=== PATIENT | male | born 1960 | race Caucasian/White ===

== ENCOUNTER 2022-02-02 13:34 | Inpatient (IN) ==
[2022-02-02 15:45] LABS: Appearance Urine Clear (Clear); Bilirubin Urine Negative (Negative); Blood Urine Trace (Negative); Color Urine Yellow; Glucose Urine UA 3+ (Negative); Ketones Urine 1+ (Negative); Leukocyte Esterase Urine Negative (Negative); Nitrite Urine Negative (Negative); Protein Urine Negative (Negative); Specific Gravity Urine 1.029 (1.000-1.030); Urobilinogen Urine Negative (Negative)
--- NOTE | 2022-02-02 16:08 | XRay Report ---
XR chest 1V portable CLINICAL HISTORY: weakness COMPARISON STUDY: Chest CT December 13, 2021. FINDINGS: Lung volumes are normal. Linear bilateral densities favor atelectasis. There is no pneumoth orax or pleural effusion. Cardiac size is normal. Mediastinal contours are normal. There is no eviden ce for pulmonary edema. IMPRESSION: No acute cardiopulmonary findings. ACT 112: Negative or not required by law. Electronically signed by: Todd Brody M.D. 02/02/2022 4:07 PM
[2022-02-02 16:15] LABS: Cast Urine Automated 0 /lpf (0-5); Epithelial Cell Urine Auto 0-5 /lpf (0-5); RBC Urine Automated 0-4 /hpf (0-4); WBC Urine Automated 0 /hpf (0-5)
[2022-02-02 16:16] LABS: Bacteria Urine Automated Negative (Negative)
[2022-02-02 16:19] LABS: Hematocrit (blood only) 42.1 % (42-52); Hemoglobin 13.3 g/dL (14.0-18.0); Mean Corpuscular Hemoglobin 27.9 pg (25-34); Mean Corpuscular Hgb Conc 31.6 g/dL (32-36); Mean Corpuscular Volume 88.4 fL (80-100); Platelet Count 196 K/uL (130-400); RDW Coefficient of Variation 17.5 % (11.5-14.5); RDW Standard Deviation 56.9 fL (36.4-46.3); Red Blood Count 4.76 M/uL (4.7-6.1)
[2022-02-02 16:26] LABS: Troponin I < 0.03 ng/ml (0-0.04)
[2022-02-02 16:41] LABS: INR 0.9 (0.9-1.1); Partial Thromboplastin Ratio 0.8; Partial Thromboplastin Time 22.9 Seconds (21.0-31.0); Prothrombin Time 9.9 Seconds (9.0-12.0)
--- NOTE | 2022-02-02 16:48 | Emergency Department Note ---
Impression & Plan Acute hyperglycemia, Hyperosmolar hyperglycemic state (HHS), COVID-19 virus infection ED Provider Note NAME: STORMY YATES AGE: 61 SEX: M : 1960 ARRIVES VIA: Walk-In INFORMANT: Patient, ED PROVIDER(S): Corey Xavier DO CHIEF COMPLAINT: Weakness HPI: The patient is a 61-year-old male who presented to the emergency department for an evaluation of generalized weakness. The patient has noticed generalized weakness and weight loss over the course of the last few months. He was referred to the emergency department by his primary arthritis doctor as well as his primary care physician for further evaluation. The patient denies having any nausea or vomiting. He has noticed some abdominal discomfort. He has had been receiving rituximab for chronic vasculitis. The patient states is been compliant with his usual outpatient medications. He denies having any black or bloody bowels. He denies having any trauma. He thinks he is lost approximately 40 pounds over the course the last few months. He also has noticed significant polyuria. ROS: See above HPI for pertinent positives & negatives. A total of 10 systems reviewed and were otherwise negative. PAST MEDICAL HISTORY: See Below PAST SURGICAL HISTORY: See Below FAMILY HISTORY: See Below SOCIAL HISTORY: See Below HOME MEDICATIONS: See Below ALLERGIES: See Below VITALS: See Below PHYSICAL EXAMINATION: GENERAL: Patient is awake alert in no acute distress patient is resting comfortably and showing no signs of anxiety EYES: The conjunctivae are clear. The pupils are round and reactive. EARS, NOSE, MOUTH AND THROAT: The nose is without any evidence of any deformity. Mucous membranes are moist. Tongue is midline. NECK: The neck is nontender and supple. RESPIRATORY: Normal respiratory effort is noted there is no evidence of wheezing rhonchi or rales CARDIOVASCULAR: Regular rate and rhythm noted there no murmurs rubs or gallops normal S1 normal S2. GASTROINTESTINAL: Abdomen was mildly distended. There is diffuse tenderness to palpation but no guarding rigidity. MUSCULOSKELETAL/EXTREMITIES: There is no evidence of gross deformity full range of motion is noted in the hips and shoulders. SKIN: There is no obvious evidence of any rash. There are no petechiae, pallor or cyanosis noted. NEUROLOGIC: Patient is awake alert and oriented x3 strength is symmetric patellar reflexes are 2+ bilaterally MEDICAL DECISION MAKING: Patient is a 61-year-old male who presented to the emergency department for an evaluation of weight loss and generalized weakness. Symptoms have been ongoing for the last few months. I discussed the patient's laboratory and radiographic studies with him. He was found to have significant hyperglycemia in the emergency department. He does take steroids but he has had these medications for quite some time. The patient was treated with IV fluids and IV insulin in the emergency department. He was reevaluated multiple times. I discussed his c ase with the on-call [facility]. They have agreed to evaluate the patient in the emergency department for further management and disposition. Triage Nursing notes reviewed. Prior medical records reviewed Vital Signs: reviewed and remarkable for hypertension. Differential diagnosis: Infection, dehydration, metabolic abnormality, hypo/hyperglycemia, electrolyte disturbance, anemia, hypoxia, cardiac sources, intracerebral event, toxicologic, neurologic, as well as other pathologies. ER treatment provided: See below Diagnostics interpreted by me: ECG: EKG was obtained in the emergency department. My interpretation is normal sinus rhythm at 81 bpm. There is no ectopy. There is no acute ST segment abnormalities noted. Inferior Q waves were noted. No previous EKG was noted. Cardiac Monitoring: An order was placed for continuous cardiac monitoring. The monitor shows a rate of 85 bpm with sinus rhythm. Laboratory studies: As stated above and show below. Imaging studies: See below Consultation(s): Discussed this case with Dr. Turner who is on-call for the [facility]. ED COURSE: Procedures: none Critical Care: I have personally spent greater than 40 minutes of critical care time in the direct management of this patient. This includes bedside care, interpretation of diagnostic studies, and testing, discussion with consultants, patient, and family members, and other required patient management activities. This 40 minutes is in excess of all separately billable procedures. Past Med/Surg History Medical History Acid reflux Chronic nonallergic rhinitis Chronic sinusitis Dyslipidemia Granulomatosis with polyangiitis Necrotizing vasculopathy Prediabetes Raynaud disease Surgical History H/O inguinal hernia repair 1968 and 1976 H/O umbilical hernia repair as History of surgery (1988) Mass removed from Neck in 1988. S/P wisdom tooth extraction Family History Mother Pancreatic cancer Brother Hypertension Sister Osteoarthritis Tourette syndrome Father , age 47 No problems noted. Grandmother (Paternal) Osteoarthritis Denies family history of Ovarian cancer Prostate cancer Hearing loss No family history of adverse response to anesthesia No family history of bleeding disorder Heart disease Allergies Myocardial infarction Breast cancer Colorectal cancer Stroke Asthma Social History Smoking Status: Never smoker Tobacco Type: Cigarettes and Smokeless Tobacco (Dip or Chew) Age Started Using Tobacco: 18; Age Quit Using Tobacco: 25; packs per day: 1; Second Hand Exposure: Yes; Hx Alcohol Use: No Hx Substance Use: No Preferred Language: German Communication Ability: Effective Visual Impairment: No Limitations Hearing Ability: Normal marital status: Current Living Situation: Spouse current occupational status: employed 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 [employer] How many Children do You have: 3 Feels Safe at Home: Yes Childhood Exposure to Second-Hand Smoke: Yes caffeine: Yes during the past year weight has: remained stable Dental Care, Regularly: No Physical Activity Frequency: 1-2 Times per Week Seatbelt Use: always Sunscreen Use: No Assistive Devices: Glasses Allergies Allergies Allergy/AdvReac Type Severity Reaction Status Date / Time No Known Drug Allergies Allergy NKDA Verified 02/02/22 18:10 Home Meds Home Medications Medication Instructions Recorded Confirmed amlodipine 5 mg tablet 10 mg PO DAILY tab 01/11/22 02/02/22 avacopan 10 mg capsule (Tavneos) 30 mg PO .STOP 01/11/22 02/02/22 prednisone 20 mg tablet 20 mg PO DAILY tab 01/11/22 02/02/22 rituximab [Rituxan] See Rx Instructions IV .COMPLEX 01/11/22 02/02/22 Results & Data (ED) Vital Signs Vital Signs - 24 hr 02/02/22 13:53 02/02/22 14:25 02/02/22 15:10 Temperature 36.5 C Temperature Source Temporal Artery Scan Pulse Rate 98 H Pulse Rate [Finger] 84 78 Pulse Rhythm Regular Pulse Rhythm [Finger] Regular Regular Pulse Strength Normal Pulse Strength [Finger] Normal Normal Respiratory Rate 18 18 18 Respiratory Effort / Characteristics Non-Labored Spontaneous Non-Labored Spontaneous Non-Labored Spontaneous Respiratory Depth Normal Normal Normal Respiratory Pattern Regular Blood Pressure 127/81 Blood Pressure [Left Arm] 130/77 122/81 Blood Pressure Mean 96 Blood Pressure Mean [Left Arm] 94 94 Blood Pressure Position Sitting Blood Pressure Position [Left Arm] Lying Lying Pulse Oximetry 100 94 95 Oxygen Delivery Method Room Air Room Air Room Air Sepsis Recent Fever Within 48 Hours No Sepsis New/Unexplained Change in Mental Status No Sepsis Action Taken by Nursing No Action Required 02/02/22 17:00 02/02/22 18:00 02/02/22 19:00 Temperature Temperature Source Pulse Rate Pulse Rate [Finger] 79 85 Pulse Rhythm Pulse Rhythm [Finger] Regular Regular Pulse Strength Pulse Strength [Finger] Normal Normal Respiratory Rate 18 18 Respiratory Effort / Characteristics Non-Labored Non-Labored Respiratory Depth Normal Normal Respiratory Pattern Regular Regular Blood Pressure Blood Pressure [Left Arm] 141/87 H 143/87 H Blood Pressure Mean Blood Pressure Mean [Left Arm] 105 105 Blood Pressure Position Blood Pressure Position [Left Arm] Lying Lying Pulse Oximetry 97 97 Oxygen Delivery Method Room Air Room Air Room Air Sepsis Recent Fever Within 48 Hours Sepsis New/Unexplained Change in Mental Status Sepsis Action Taken by Long Term Medications Current Medication List: was personally reviewed by me Laboratory Data Attestation: I reviewed the patient's lab results. Result diagrams: 02/02/22 14:20 02/02/22 14:20 Lab Results 02/02/22 02/02/22 02/02/22 Range/Units 14:20 14:20 14:20 WBC 7.70 (4.8-10.8) K/uL RBC 4.76 (4.7-6.1) M/uL Hgb 13.3 L (14.0-18.0) g/dL Hct 42.1 (42-52) % MCV 88.4 (80-100) fL MCH 27.9 (25-34) pg MCHC 31.6 L (32-36) g/dL RDW Std Deviation 56.9 H (36.4-46.3) fL RDW Coeff of Lico 17.5 H (11.5-14.5) % Plt Count 196 (130-400) K/uL MPV 10.0 (7.4-10.4) fL Neutrophils % (Manual) 77.4 % Lymphocytes % (Manual) 6.1 % Monocytes % (Manual) 5.2 % Metamyelocytes % (Man) 5.2 % Myelocytes % (Man) 6.1 % Neutrophils # (Manual) 5.96 (1.4-6.5) K/uL Total Absolute Neuts 5.96 (1.4-6.5) K/uL Lymphocytes # (Manual) 0.47 L (1.2-3.4) K/uL Total Abs Lymphocytes 0.47 L (1.2-3.4) K/uL Monocytes # (Manual) 0.40 (0.11-0.59) K/uL Metamyelocytes # (Man) 0.40 H (0-0) K/uL Myelocytes # (Manual) 0.47 H (0-0) K/uL Polychromasia 1+ Microcytosis Present PT 9.9 (9.0-12.0) Seconds INR 0.9 (0.9-1.1) APTT 22.9 (21.0-31.0) Seconds PTT Ratio 0.8 VBG pH (7.36-7.41) VBG pCO2 (38-50) mmHg VBG pO2 mmHg VBG HCO3 mmol/L VBG O2 Saturation % VBG Base Excess mEq/L Barometric Pressure mm/Hg Sodium 121 L (136-145) mmol/L Potassium 5.0 (3.5-5.1) mmol/L Chloride 86 L (98-107) mmol/L Carbon Dioxide 21 (21-32) mmol/L Anion Gap 14 H (3-11) BUN 34 H (6-23) mg/dl Creatinine 1.39 (0.6-1.4) mg/dl Est Cr Clr Drug Dosing 58.9 ml/min Est GFR ( Amer) 62.9 ml/min Est GFR (Non-Af Amer) 54.3 ml/min BUN/Creatinine Ratio 24.5 H (10-20) Glucose 1004 H* (70-99(Fasting)) mg/dl POC Glucose (70-99) mg/dl Calcium 8.4 L (8.5-10.1) mg/dl Magnesium 2.0 (1.7-2.4) mg/dl Total Bilirubin 0.7 (0.2-1.0) mg/dl AST 22 (13-39) U/L ALT 40 (7-52) U/L Alkaline Phosphatase 90 (34-104) U/L Total Creatine Kinase 42 (30-223) U/L Troponin I < 0.03 (0-0.04) ng/ml Total Protein 5.3 L (6.0-8.3) gm/dl Albumin 3.1 L (3.4-5.0) gm/dl Globulin 2.2 L (2.5-4.0) gm/dl Albumin/Globulin Ratio 1.4 (0.9-2) Procalcitonin (0-0.5) ng/ml TSH (0.300-4.500) uIu/ml Urine Color Urine Appearance (Clear) Urine pH (4.5-7.5) Ur Specific [place] (1.000-1.030) Urine Protein (Negative) Urine Glucose (UA) (Negative) Urine Ketones (Negative) Urine Blood (Negative) Urine Nitrite (Negative) Urine Bilirubin (Negative) Urine Urobilinogen (Negative) Ur Leukocyte Esterase (Negative) Urine WBC (Auto) (0-5) /hpf Urine RBC (Auto) (0-4) /hpf U Hyaline Cast (Auto) (0-5) /lpf U Epithel Cells (Auto) (0-5) /lpf Urine Bacteria (Auto) (Negative) SARS-CoV-2, RNA, NAAT (NEGATIVE) 02/02/22 02/02/22 02/02/22 Range/Units 14:20 15:07 17:20 WBC (4.8-10.8) K/uL RBC (4.7-6.1) M/uL Hgb (14.0-18.0) g/dL Hct (42-52) % MCV (80-100) fL MCH (25-34) pg MCHC (32-36) g/dL RDW Std Deviation (36.4-46.3) fL RDW Coeff of Lico (11.5-14.5) % Plt Count (130-400) K/uL MPV (7.4-10.4) fL Neutrophils % (Manual) % Lymphocytes % (Manual) % Monocytes % (Manual) % Metamyelocytes % (Man) % Myelocytes % (Man) % Neutrophils # (Manual) (1.4-6.5) K/uL Total Absolute Neuts (1.4-6.5) K/uL Lymphocytes # (Manual) (1.2-3.4) K/uL Total Abs Lymphocytes (1.2-3.4) K/uL Monocytes # (Manual) (0.11-0.59) K/uL Metamyelocytes # (Man) (0-0) K/uL Myelocytes # (Manual) (0-0) K/uL Polychromasia Microcytosis PT (9.0-12.0) Seconds INR (0.9-1.1) APTT (21.0-31.0) Seconds PTT Ratio VBG pH (7.36-7.41) VBG pCO2 (38-50) mmHg VBG pO2 mmHg VBG HCO3 mmol/L VBG O2 Saturation % VBG Base Excess mEq/L Barometric Pressure mm/Hg Sodium (136-145) mmol/L Potassium (3.5-5.1) mmol/L Chloride (98-107) mmol/L Carbon Dioxide (21-32) mmol/L Anion Gap (3-11) BUN (6-23) mg/dl Creatinine (0.6-1.4) mg/dl Est Cr Clr Drug Dosing ml/min Est GFR ( Amer) ml/min Est GFR (Non-Af Amer) ml/min BUN/Creatinine Ratio (10-20) Glucose (70-99(Fasting)) mg/dl POC Glucose > 600 H* (70-99) mg/dl Calcium (8.5-10.1) mg/dl Magnesium (1.7-2.4) mg/dl Total Bilirubin (0.2-1.0) mg/dl AST (13-39) U/L ALT (7-52) U/L Alkaline Phosphatase (34-104) U/L Total Creatine Kinase (30-223) U/L Troponin I (0-0.04) ng/ml Total Protein (6.0-8.3) gm/dl Albumin (3.4-5.0) gm/dl Globulin (2.5-4.0) gm/dl Albumin/Globulin Ratio (0.9-2) Procalcitonin (0-0.5) ng/ml TSH 0.876 (0.300-4.500) uIu/ml Urine Color Yellow Urine Appearance Clear (Clear) Urine pH 5.0 (4.5-7.5) Ur Specific [place] 1.029 (1.000-1.030) Urine Protein Negative (Negative) Urine Glucose (UA) 3+ H (Negative) Urine Ketones 1+ H (Negative) Urine Blood Trace H (Negative) Urine Nitrite Negative (Negative) Urine Bilirubin Negative (Negative) Urine Urobilinogen Negative (Negative) Ur Leukocyte Esterase Negative (Negative) Urine WBC (Auto) 0 (0-5) /hpf Urine RBC (Auto) 0-4 (0-4) /hpf U Hyaline Cast (Auto) 0 (0-5) /lpf U Epithel Cells (Auto) 0-5 (0-5) /lpf Urine Bacteria (Auto) Negative (Negative) SARS-CoV-2, RNA, NAAT (NEGATIVE) 02/02/22 02/02/22 02/02/22 Range/Units 18:05 18:26 18:35 WBC (4.8-10.8) K/uL RBC (4.7-6.1) M/uL Hgb (14.0-18.0) g/dL Hct (42-52) % MCV (80-100) fL MCH (25-34) pg MCHC (32-36) g/dL RDW Std Deviation (36.4-46.3) fL RDW Coeff of Lico (11.5-14.5) % Plt Count (130-400) K/uL MPV (7.4-10.4) fL Neutrophils % (Manual) % Lymphocytes % (Manual) % Monocytes % (Manual) % Metamyelocytes % (Man) % Myelocytes % (Man) % Neutrophils # (Manual) (1.4-6.5) K/uL Total Absolute Neuts (1.4-6.5) K/uL Lymphocytes # (Manual) (1.2-3.4) K/uL Total Abs Lymphocytes (1.2-3.4) K/uL Monocytes # (Manual) (0.11-0.59) K/uL Metamyelocytes # (Man) (0-0) K/uL Myelocytes # (Manual) (0-0) K/uL Polychromasia Microcytosis PT (9.0-12.0) Seconds INR (0.9-1.1) APTT (21.0-31.0) Seconds PTT Ratio VBG pH 7.42 H (7.36-7.41) VBG pCO2 36 L (38-50) mmHg VBG pO2 33 mmHg VBG HCO3 23 mmol/L VBG O2 Saturation 63.9 % VBG Base Excess -0.8 mEq/L Barometric Pressure 729.1 mm/Hg Sodium (136-145) mmol/L Potassium (3.5-5.1) mmol/L Chloride (98-107) mmol/L Carbon Dioxide (21-32) mmol/L Anion Gap (3-11) BUN (6-23) mg/dl Creatinine (0.6-1.4) mg/dl Est Cr Clr Drug Dosing ml/min Est GFR ( Amer) ml/min Est GFR (Non-Af Amer) ml/min BUN/Creatinine Ratio (10-20) Glucose (70-99(Fasting)) mg/dl POC Glucose (70-99) mg/dl Calcium (8.5-10.1) mg/dl Magnesium (1.7-2.4) mg/dl Total Bilirubin (0.2-1.0) mg/dl AST (13-39) U/L ALT (7-52) U/L Alkaline Phosphatase (34-104) U/L Total Creatine Kinase (30-223) U/L Troponin I (0-0.04) ng/ml Total Protein (6.0-8.3) gm/dl Albumin (3.4-5.0) gm/dl Globulin (2.5-4.0) gm/dl Albumin/Globulin Ratio (0.9-2) Procalcitonin 0.14 (0-0.5) ng/ml TSH (0.300-4.500) uIu/ml Urine Color Urine Appearance (Clear) Urine pH (4.5-7.5) Ur Specific [place] (1.000-1.030) Urine Protein (Negative) Urine Glucose (UA) (Negative) Urine Ketones (Negative) Urine Blood (Negative) Urine Nitrite (Negative) Urine Bilirubin (Negative) Urine Urobilinogen (Negative) Ur Leukocyte Esterase (Negative) Urine WBC (Auto) (0-5) /hpf Urine RBC (Auto) (0-4) /hpf U Hyaline Cast (Auto) (0-5) /lpf U Epithel Cells (Auto) (0-5) /lpf Urine Bacteria (Auto) (Negative) SARS-CoV-2, RNA, NAAT POSITIVE A* (NEGATIVE) 02/02/22 02/02/22 Range/Units 19:09 20:12 WBC (4.8-10.8) K/uL RBC (4.7-6.1) M/uL Hgb (14.0-18.0) g/dL Hct (42-52) % MCV (80-100) fL MCH (25-34) pg MCHC (32-36) g/dL RDW Std Deviation (36.4-46.3) fL RDW Coeff of Lico (11.5-14.5) % Plt Count (130-400) K/uL MPV (7.4-10.4) fL Neutrophils % (Manual) % Lymphocytes % (Manual) % Monocytes % (Manual) % Metamyelocytes % (Man) % Myelocytes % (Man) % Neutrophils # (Manual) (1.4-6.5) K/uL Total Absolute Neuts (1.4-6.5) K/uL Lymphocytes # (Manual) (1.2-3.4) K/uL Total Abs Lymphocytes (1.2-3.4) K/uL Monocytes # (Manual) (0.11-0.59) K/uL Metamyelocytes # (Man) (0-0) K/uL Myelocytes # (Manual) (0-0) K/uL Polychromasia Microcytosis PT (9.0-12.0) Seconds INR (0.9-1.1) APTT (21.0-31.0) Seconds PTT Ratio VBG pH (7.36-7.41) VBG pCO2 (38-50) mmHg VBG pO2 mmHg VBG HCO3 mmol/L VBG O2 Saturation % VBG Base Excess mEq/L Barometric Pressure mm/Hg Sodium (136-145) mmol/L Potassium (3.5-5.1) mmol/L Chloride (98-107) mmol/L Carbon Dioxide (21-32) mmol/L Anion Gap (3-11) BUN (6-23) mg/dl Creatinine (0.6-1.4) mg/dl Est Cr Clr Drug Dosing ml/min Est GFR ( Amer) ml/min Est GFR (Non-Af Amer) ml/min BUN/Creatinine Ratio (10-20) Glucose (70-99(Fasting)) mg/dl POC Glucose 542 H* 468 H* (70-99) mg/dl Calcium (8.5-10.1) mg/dl Magnesium (1.7-2.4) mg/dl Total Bilirubin (0.2-1.0) mg/dl AST (13-39) U/L ALT (7-52) U/L Alkaline Phosphatase (34-104) U/L Total Creatine Kinase (30-223) U/L Troponin I (0-0.04) ng/ml Total Protein (6.0-8.3) gm/dl Albumin (3.4-5.0) gm/dl Globulin (2.5-4.0) gm/dl Albumin/Globulin Ratio (0.9-2) Procalcitonin (0-0.5) ng/ml TSH (0.300-4.500) uIu/ml Urine Color Urine Appearance (Clear) Urine pH (4.5-7.5) Ur Specific [place] (1.000-1.030) Urine Protein (Negative) Urine Glucose (UA) (Negative) Urine Ketones (Negative) Urine Blood (Negative) Urine Nitrite (Negative) Urine Bilirubin (Negative) Urine Urobilinogen (Negative) Ur Leukocyte Esterase (Negative) Urine WBC (Auto) (0-5) /hpf Urine RBC (Auto) (0-4) /hpf U Hyaline Cast (Auto) (0-5) /lpf U Epithel Cells (Auto) (0-5) /lpf Urine Bacteria (Auto) (Negative) SARS-CoV-2, RNA, NAAT (NEGATIVE) Administered Medications Insulin Human Regular 250 (units/ Sodium Chloride) 250 mls @ 4.5 mls/hr IV .Q24H [facility]; Protocol Stop: 03/04/22 17:29 Last Titration: 02/02/22 19:47 Dose: 4.5 units/hr, 4.5 mls/hr Documented by: [id number] Cosigned by: [id number] Titration: 02/02/22 19:15 Dose: 0 units/hr, 0 mls/hr Documented by: [id number] Cosigned by: [id number] Admin: 02/02/22 18:09 Dose: 7.5 units/hr, 7.5 mls/hr Documented by: [id number] Cosigned by: [id number] Discontinued Medications Sodium Chloride (Nss 1000ml) 1,000 mls @ 999 mls/hr IV .Q1H1M ONE Stop: 02/02/22 18:13 Last Infusion: 02/02/22 20:00 Dose: 0 mls/hr Documented by: [id number] Admin: 02/02/22 18:09 Dose: 999 mls/hr Documented by: [id number] Sodium Chloride (Nss 1000ml) 1,000 mls @ 999 mls/hr IV .Q1H1M ONE Stop: 02/02/22 18:17 Last Admin: 02/02/22 19:16 Dose: 999 mls/hr Documented by: [id number] Insulin Human Regular (Novolin-R Bolus From Bag) 7.5 units IV ONE ONE Stop: 02/02/22 17:46 Last Admin: 02/02/22 18:11 Dose: 7.5 units Documented by: [id number] Cosigned by: [id number] Imaging Data Radiologist's Impression: Chest X-Ray 02/02/22 15:54 XR chest 1V portable CLINICAL HISTORY: weakness COMPARISON STUDY: Chest CT December 13, 2021. FINDINGS: Lung volumes are normal. Linear bilateral densities favor atelectasis. There is no pneumothorax or pleural effusion. Cardiac size is normal. Mediastinal contours are normal. There is no evidence for pulmonary edema. IMPRESSION: No acute cardiopulmonary findings. ACT 112: Negative or not required by law. Electronically signed by: Todd Brody M.D. 02/02/2022 4:07 PM Abdomen/Pelvis CT 02/02/22 15:57 CT OF THE ABDOMEN AND PELVIS WITHOUT CONTRAST CLINICAL HISTORY: Abdominal pain and urinary symptoms. COMPARISON STUDY: No previous studies for comparison. TECHNIQUE: Axial images of the abdomen and pelvis were obtained without IV contr ast. Images were reviewed in the axial, sagittal, and coronal planes. Automated exposure control was utilized for the study. A dose lowering technique was utilized adhering to the principles of ALARA. FINDINGS: Mild ground glass opacities are noted within the lower lungs. These are new since chest CT of December 13, 2021. No renal, ureteral or bladder calculi are present. There is no hydronephrosis or hydroureter. Evaluation of the remainder of the abdomen and pelvis is suboptimal on this unenhanced exam. There is hepatic steatosis. The spleen, adrenal glands and pancreas are unremarkable. No biliary or pancreatic ductal dilatation. No peripancreatic or pericholecystic infiltration. Appendix is normal. There is no evidence for a bowel obstruction. Moderate amount stool within the colon and rectum is present. There is no lymphadenopathy or ascites. No acute fracture or suspicious lesion within visualized skeletal structures. Prostate is moderately enlarged. Bladder is mildly distended. IMPRESSION: 1. No urinary calculi or hydronephrosis. 2. Moderately enlarged prostate. Mild bladder distention. 3. Normal appendix. No bowel obstruction. 4. Mild groundglass opacities within the lower lungs. These favor an infectious process. 5. Hepatic steatosis. ACT 112: Negative or not required by law. Electronically signed by: Todd Brody M.D. 02/02/2022 5:[address] 02/02/22 15:57 CT SCAN OF THE BRAIN WITHOUT IV CONTRAST CLINICAL HISTORY: Generalized weakness. COMPARISON STUDY: CT of the paranasal sinuses dated 10/19/2021. TECHNIQUE: Unenhanced axial CT scan of the brain is performed from the vertex to the skull base. A dose lowering technique was utilized adhering to the principles of ALARA. FINDINGS: Brain parenchyma: The brain parenchyma is normal in appearance. There is no hemorrhage, mass effect, or evidence of acute territorial ischemia by CT criteria. Davidson-white matter differentiation is preserved. No extra-axial fluid collection is seen. Ventricles, sulci, cisterns: Normal in configuration. Intracranial vasculature: There is atherosclerotic calcification of the cavernous carotid and vertebral arteries. Calvarium: Unremarkable. Sinuses and mastoids: The visualized paranasal sinuses are clear. The mastoid air cells are well pneumatized. Orbits: The bony orbits are grossly intact. IMPRESSION: There is no hemorrhage, mass effect, or evidence of acute territorial ischemia by CT criteria. ACT 112: Negative or not required by law. Electronically signed by: Freddy Fermin M.D. 02/02/2022 5:02 PM Discharge Plan Visit Data Chief Complaint: Weakness Stated Complaint: WEIGHT LOSS, WEAKNESS, TROUBLE STANDING ED Provider: Corey Xavier Discharge Problem: Acute hyperglycemia, Hyperosmolar hyperglycemic state (HHS), COVID-19 virus infection Patient Disposition: Being Evaluated by Hospitalist Forms Stand Alone Forms: My [facility] Prescriptions Prescriptions: No Action amlodipine 5 mg tablet 10 mg PO DAILY RF: 0 Tavneos 10 mg capsule 30 mg PO .STOP RF: 0 prednisone 20 mg tablet 20 mg PO DAILY RF: 0 rituximab [Rituxan] See Rx Instructions IV .COMPLEX RF: 0 Referrals Referrals: Caitie Lopez DO [Primary Care Provider] -
[2022-02-02 16:52] LABS: Alanine Aminotransferase 40 U/L (7-52); Albumin Globulin Ratio 1.4 (0.9-2); Albumin Level 3.1 gm/dl (3.4-5.0); Alkaline Phosphatase 90 U/L (34-104); Anion Gap 14 (3-11); Aspartate Aminotransferase 22 U/L (13-39); BUN Creatinine Ratio 24.5 (10-20); Bilirubin,Total 0.7 mg/dl (0.2-1.0); Blood Urea Nitrogen 34 mg/dl (6-23); Calcium 8.4 mg/dl (8.5-10.1); Carbon Dioxide 21 mmol/L (21-32); Chloride 86 mmol/L (98-107); Creatine Kinase 42 U/L (30-223); Creatinine Clr Calc Pharmacy 58.9 ml/min; Est GFR (African American) 62.9 ml/min; Est GFR (Non-African American) 54.3 ml/min; Globulin 2.2 gm/dl (2.5-4.0); Glucose 1004 mg/dl (70-99(Fasting)); Sodium 121 mmol/L (136-145); Total Protein 5.3 gm/dl (6.0-8.3)
--- NOTE | 2022-02-02 17:03 | CT Scan Report ---
CT OF THE ABDOMEN AND PELVIS WITHOUT CONTRAST CLINICAL HISTORY: Abdominal pain and urinary symptoms. COMPARISON STUDY: No previous studies for comparison. TECHNIQUE: Axial images of the abdomen and pelvis were obtained without IV contrast. Images were revi ewed in the axial, sagittal, and coronal planes. Automated exposure control was utilized for the yolanda dy. A dose lowering technique was utilized adhering to the principles of ALARA. FINDINGS: Mild ground glass opacities are noted within the lower lungs. These are new since chest CT of December 13, 2021. No renal, ureteral or bladder calculi are present. There is no hydronephrosis or hydroureter. Evaluation of the remainder of the abdomen and pelvis is suboptimal on this unenhanced exam. There is hepatic steatosis. The spleen, adrenal glands and pancreas are unremarkable. No biliar y or pancreatic ductal dilatation. No peripancreatic or pericholecystic infiltration. Appendix is nor mal. There is no evidence for a bowel obstruction. Moderate amount stool within the colon and rectum is present. There is no lymphadenopathy or ascites. No acute fracture or suspicious lesion within vis ualized skeletal structures. Prostate is moderately enlarged. Bladder is mildly distended. IMPRESSION: 1. No urinary calculi or hydronephrosis. 2. Moderately enlarged prostate. Mild bladder distention. 3. Normal appendix. No bowel obstruction. 4. Mild groundglass opacities within the lower lungs. These favor an infectious process. 5. Hepatic steatosis. ACT 112: Negative or not required by law. Electronically signed by: Todd Brody M.D. 02/02/2022 5:01 PM
--- NOTE | 2022-02-02 17:04 | CT Scan Report ---
CT SCAN OF THE BRAIN WITHOUT IV CONTRAST CLINICAL HISTORY: Generalized weakness. COMPARISON STUDY: CT of the paranasal sinuses dated 10/19/2021. TECHNIQUE: Unenhanced axial CT scan of the brain is performed from the vertex to the skull base. A d ose lowering technique was utilized adhering to the principles of ALARA. FINDINGS: Brain parenchyma: The brain parenchyma is normal in appearance. There is no hemorrhage, mass effect, or evidence of acute territorial ischemia by CT criteria. Davidson-white matter differentiation is preser mart. No extra-axial fluid collection is seen. Ventricles, sulci, cisterns: Normal in configuration. Intracranial vasculature: There is atherosclerotic calcification of the cavernous carotid and vertebr al arteries. Calvarium: Unremarkable. Sinuses and mastoids: The visualized paranasal sinuses are clear. The mastoid air cells are well pneu matized. Orbits: The bony orbits are grossly intact. IMPRESSION: There is no hemorrhage, mass effect, or evidence of acute territorial ischemia by CT james nicholson. ACT 112: Negative or not required by law. Electronically signed by: Freddy Fermin M.D. 02/02/2022 5:02 PM
[2022-02-02 17:05] LABS: Microcytosis Present; Polychromasia 1+
[2022-02-02] MEDS ORDERED: STAT IV Infusion **Titration per Protocol STA (17:13)
[2022-02-02] MEDS ORDERED: SODIUM CHLORIDE 0.9% 1000ML 1,000 ML IV ONE ×2 (17:13→17:17)
[2022-02-02] MEDS ORDERED: GLUCOSE 10 TABS/TUBE PO PRN (17:13)
[2022-02-02] MEDS ORDERED: DKA GOAL RANGE 150-250 mg/dl ONE (17:13)
[2022-02-02] MEDS ORDERED: GLUCAGON FOR INJ 1 MG VIAL SQ PRN (17:13)
[2022-02-02] MEDS ORDERED: CARBOHYDRATES FOR HYPOGLYCEMIA PO PRN (17:13)
[2022-02-02] MEDS ORDERED: GLUCOSE 40% GEL 15 GM TUBE PO PRN (17:13)
[2022-02-02] MEDS ORDERED: INSULIN REGULAR 250 UNITS in SODIUM CHLORIDE 0.9% 247.5 ML IV SCH (17:15)
[2022-02-02] MEDS ORDERED: NovoLIN-R BOLUS FROM BAG IV ONE ×2 (17:30→17:45)
[2022-02-02 17:33] LABS: ALC (manual) 0.47 K/uL (1.2-3.4); ANC (manual) 5.96 K/uL (1.4-6.5); Lymphocytes # (manual) 0.47 K/uL (1.2-3.4); Lymphocytes % (manual) 6.1 %; Metamyelocytes % (manual) 5.2 %; Monocytes % (manual) 5.2 %; Myelocytes # (manual) 0.47 K/uL (0-0); Myelocytes % (manual) 6.1 %; Neutrophils # (manual) 5.96 K/uL (1.4-6.5); Neutrophils % (manual) 77.4 %
[2022-02-02] MEDS: INSULIN REGULAR 250 UNITS in SODIUM CHLORIDE 0.9% 247.5 ML IV SCH (18:09)
--- NOTE | 2022-02-02 18:12 | History & Physical Report ---
Date of Service February 02, 2022 Assessment & Plan (1) Hyperosmolar hyperglycemic state (HHS): Plan: Last A1c was 5.7% in 10/2021. He has been on prednisone since early November, up to 60 mg for weeks. Only recently started tapering down. Rituximab also has 9% risk of hypeglycemia per report. - Started DKA/HHS protocol in ER -> Now receiving IV fluids, IV insulin - Glycemic pharmacy consulted - Closely monitor electrolytes - staff development educator consulted (2) Hyponatremia: Plan: Pseudohyponatremia. Corrected Na is 135. 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 Follows with Roel Mendez at [facility]. - Presently on prednisone 20 mg PO daily -> Continue - Per patient, Dr. Mendez told him to stop Tavneos today. Not continued inpatient. 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 Kidney biopsy delayed due to Covid-19 test being positive. Could confirm with Dr. Mendze. (4) COVID-19: Plan: Covid-19 was positive per patient on 01/19 which was done as a pre-kidney biopsy test. Denies any symptoms. CT a/p on admission also shows some mild opacities in the lower lung. - Past isolation date at this point; no need for intervention to my knowledge. (5) Infiltrate noted on imaging study: Plan: Noted on CT a/p. Possibly due to Covid. - Will get procalcitonin. If negative, defer treatment. (6) DVT prophylaxis: Plan: Lovenox 40 mg SQ daily History of Present Illness Primary Care Provider: Caitie Lopez DO 61yo M w/ hx of vasculitis who presents with hyperglycemia, HHS vs. mild DKA. The patient spent much of 2020 with various joint, eye, and fingertip pain. 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 Roel Mendez in [place]. He was started on prednisone 60 mg PO daily and took that for nearly 2 months. He was also approved for Tavneos and rituximab. He finished his Tavneos today (per the patient Dr. Mendez told him to stop it) and received his most recent rituximab infusion on 01/29 with plans for another next week. He reports that over the last few weeks, he has become progressively weaker. He reports no focal weakness, but just that he has to "concentrate" to stay upright in his chair. Lifting himself out of bed takes a lot of energy. He also notes incredible thirst and has been having to drink non-stop to keep his mouth from getting dry. He notes urination of clear urine every hour. He also notes waxing and waning blurry vision. Allergies Allergy/AdvReac Type Severity Reaction Status Date / Time No Known Drug Allergies Allergy NKDA Verified 02/02/22 18:10 Home Medications Medication Instructions Recorded Confirmed Type amlodipine 5 mg tablet 10 mg PO DAILY tab 01/11/22 History avacopan 10 mg capsule (Tavneos) 30 mg PO BID 01/11/22 01/11/22 History prednisone 20 mg tablet 60 mg PO DAILY tab 01/11/22 01/11/22 History rituximab [Rituxan] See Rx Instructions IV .COMPLEX 01/11/22 01/11/22 History Past Med/Surg History Medical History Acid reflux Chronic nonallergic rhinitis Chronic sinusitis Dyslipidemia Granulomatosis with polyangiitis Necrotizing vasculopathy Prediabetes Raynaud disease Surgical History H/O inguinal hernia repair 1968 and 1976 H/O umbilical hernia repair as infant History of surgery (1988) Mass removed from Neck in 1988. S/P wisdom tooth extraction Family History Mother Pancreatic cancer Brother Hypertension Sister Osteoarthritis Tourette syndrome Father , age 47 No problems noted. Grandmother (Paternal) Osteoarthritis Denies family history of Ovarian cancer Prostate cancer Hearing loss No family history of adverse response to anesthesia No family history of bleeding disorder Heart disease Allergies Myocardial infarction Breast cancer Colorectal cancer Stroke Asthma Social History Smoking Status: Never smoker Tobacco Type: Cigarettes and Smokeless Tobacco (Dip or Chew) Age Started Using Tobacco: 18; Age Quit Using Tobacco: 25; packs per day: 1; Second Hand Exposure: Yes; Hx Alcohol Use: No Hx Substance Use: No Preferred Language: Lao Communication Ability: Effective Visual Impairment: No Limitations Hearing Ability: Normal marital status: Current Living Situation: Spouse current occupational status: employed 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 [employer] How many Children do You have: 3 Feels Safe at Home: Yes Childhood Exposure to Second-Hand Smoke: Yes caffeine: Yes during the past year weight has: remained stable Dental Care, Regularly: No Physical Activity Frequency: 1-2 Times per Week Seatbelt Use: always Sunscreen Use: No Assistive Devices: Glasses Review of Systems Review of Systems: All systems reviewed & are unremarkable except as noted in HPI & below Physical Exam Constitutional: WD/WN, vitals as above Eyes: EOM intact bilaterally; no conjunctival abnormality ENMT: external ear and nose normal, oropharynx normal Neck: trachea midline, no thyromegaly normal visual inspection Respiratory: normal respiratory effort, lungs clear to auscultation no respiratory distress Cardiovascular: RRR, no murmur, no edema Gastrointestinal (Abdomen): Inspection/Auscultation: abdomen normal to inspection; abdomen not distended Musculoskeletal: no cyanosis or clubbing, extremities motor strength 5/5 Skin: no rashes, warm and dry Neurologic: moves all extremities and awake Psychiatric: Orientation: alert, oriented to person and cooperative Results & Data Results & Data ([facility]) Vital Signs (Past 12 Hours) Vital Signs Temp Pulse Pulse Resp BP BP Pulse Ox 02/02/22 17:00 79 18 141/87 H 97 02/02/22 15:10 78 18 122/81 95 02/02/22 14:25 84 18 130/77 94 02/02/22 13:53 36.5 C 98 H 18 127/81 100 Code Status & VTE Plan VTE Prophylaxis Plan VTE Prophylaxis will be ordered: Yes PG Care Time/CCT Total # of Minutes Spent Total Time Spent with Patient: Total time spent is greater than 50% in coordination of care (as documented) at patient's floor/unit and/or counseling patient: Coding Level of Care Code 09730 Initial Inpt Care Lvl 3 Diagnoses Hyperosmolar hyperglycemic state (HHS) E11.00; E11.65 Granulomatosis with polyangiitis M31.30 DVT prophylaxis Z29.9 COVID-19 U07.1 Hyponatremia E87.1 Infiltrate noted on imaging study R93.89
[2022-02-02 18:39] LABS: Base Excess VBG -0.8 mEq/L; Oxygen Saturation VBG 63.9 %; pH VBG 7.42 (7.36-7.41)
--- NOTE | 2022-02-02 20:09 | Pharmacy Report ---
Pharmacy Glycemic Short Note 2 - Date of Service February 02, 2022 - Glycemic Short BSG Results (Last 24 hours): 02/02/22 02/02/22 02/02/22 14:20 17:20 19:09 Glucose 1004 H* POC Glucose > 600 H* 542 H* OUTPATIENT ANTIDIABETIC REGIMEN: * None * HbA1c 5.7% October 2021, BUT on prednisone ~60 mg daily since November 2021 for granulomatosis w polyangiitis (formerly Julianne's) * Repeat HbA1c ordered ASSESSMENT: * 61 yo M with hx of prediabetes on no diabetes medications as outpatient, started on prednisone ~2 months ago per above and now admitted with HHS * Not DKA as not acidotic (although anion gap slightly elevated). Corrected Na is 136 and *effective* osmolality for HHS is 328 (>320 indicative of HHS) * Continue insulin drip started in the ED * Normal saline 2L administered - more is likely necessary due to severe volume depletion associated with HHS - will reach out to provider PLAN FOR INPATIENT GLYCEMIC CONTROL: * Insulin drip, goal range 250-350 mg/dL for HHS * Bolus insulin: NovoLog ACHS for CHO coverage, per insulin drip
[2022-02-02] MEDS ORDERED: ACETAMINOPHEN 325 MG TAB PO PRN (21:28)
[2022-02-02] MEDS ORDERED: PHARMACY GLYCEMIC MGMT CONSULT PRN (21:28)
[2022-02-02] MEDS ORDERED: ONDANSETRON INJ 2 MG/ML 2 ML VIAL IV PRN (21:28)
--- NOTE | 2022-02-02 22:48 | Electrocardiogram Report ---
Test Reason : Blood Pressure : / mmHG Vent. Rate : 081 BPM Atrial Rate : 081 BPM P-R Int : 158 ms QRS Dur : 100 ms QT Int : 360 ms P-R-T Axes : 043 026 007 degrees QTc Int : 418 ms Normal sinus rhythm Possible Inferior infarct , age undetermined Abnormal ECG No previous ECGs available Confirmed by Ronn Mcpherson ([id number]) on 02/02/2022 10:47:44 PM Referred By: REFERRED SELF Confirmed By:Ronn Mcpherson
[2022-02-02] MEDS: SODIUM CHLORIDE 0.9% 1000ML 1,000 ML IV SCH (22:49)
[2022-02-02] MEDS: INSULIN ASPART PER UNIT SC SCH (22:57)
[2022-02-03 03:59] LABS: Hematocrit (blood only) 39.4 % (42-52); Hemoglobin 13.6 g/dL (14.0-18.0); Mean Corpuscular Hemoglobin 27.9 pg (25-34); Mean Corpuscular Hgb Conc 34.5 g/dL (32-36); Mean Corpuscular Volume 80.9 fL (80-100); Mean Platelet Volume 9.1 fL (7.4-10.4); Platelet Count 177 K/uL (130-400); RDW Coefficient of Variation 17.3 % (11.5-14.5); RDW Standard Deviation 51.4 fL (36.4-46.3); Red Blood Count 4.87 M/uL (4.7-6.1); White Blood Count 8.94 K/uL (4.8-10.8)
[2022-02-03 04:17] LABS: BUN Creatinine Ratio 23.5 (10-20); Calcium 8.3 mg/dl (8.5-10.1); Est GFR (African American) 96.1 ml/min; Est GFR (Non-African American) 82.9 ml/min; Magnesium 2.1 mg/dl (1.7-2.4); Phosphorus 2.3 mg/dl (2.5-4.9); Potassium 3.9 mmol/L (3.5-5.1)
[2022-02-03] MEDS: DEXTROSE 50% 50 ML SYRINGE IV PRN ×3 (04:32→05:15)
[2022-02-03] MEDS: SODIUM CHLORIDE 0.9% 1000ML 1,000 ML IV SCH (06:32)
[2022-02-03 07:35] LABS: Estimated Average Glucose 398 mg/dl; Hemoglobin A1C 15.5 % (4.5-5.6)
[2022-02-03] MEDS: amLODIPine BESYLATE 5 MG TAB PO SCH (08:10)
[2022-02-03] MEDS: predniSONE 20 MG TAB PO SCH (08:10)
[2022-02-03] MEDS: ENOXAPARIN INJ 40 MG/0.4 ML SYR SQ SCH (08:11)
[2022-02-03] MEDS: INSULIN ASPART PER UNIT SC SCH ×4 (08:14→21:14)
--- NOTE | 2022-02-03 08:38 | Hospitalist Progress Note ---
Date of Service February 03, 2022 Assessment & Plan (1) Hyperosmolar hyperglycemic state (HHS): Plan: - Last A1c was 5.7% in 10/2021. He has been on prednisone since early November, up to 60 mg for weeks. Only recently started tapering down. Rituximab also has 9% risk of hypeglycemia per report. -A1c 15.5 on admission, BSG on admission greater than 1000 Started on insulin GTT on admission - Glycemic pharmacy consulted on admission - nursing educator consulted -02/03: Sodium normalized 142, potassium 3.9, glucose down trended to 173 at 0326, POC 281 at 0829, phosphorus 2.3, anion gap 7, bicarb 28 Serum glucose downtrending, anion gap less than 12, bicarb greater than 15, last VBG pH greater than 7.3. - BSG goal adjusted to 150-250 Drip down titrating, hopefully conversion to subcu tonight/tomorrow Trend BMP (2) Hyponatremia: Plan: Pseudohyponatremia. Corrected Na is 135 on admission Normalized - Monitor (3) Granulomatosis with polyangiitis: Plan: Diagnosed in early November from symptoms and positive MD-3 Ab. Follows with Roel Mendez at [facility]. - Presently on prednisone 20 mg PO daily -> Continue - Per patient, Dr. Mendez told him to stop Tavneos 02/02. Not continued inpatient. 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 Kidney biopsy delayed due to Covid-19 test being positive. (4) COVID-19: Plan: Covid-19 was positive per patient on 01/19 which was done as a pre-kidney biopsy test. Denies any symptoms. CT a/p on admission also shows some mild opacities in the lower lung. - Past isolation date at this point; no intervention at this time (5) Infiltrate noted on imaging study: Plan: Noted on CT a/p. Possibly due to Covid. -Calcitonin negative, no fever, defer antibiotic treatment at this time (6) DVT prophylaxis: Plan: Lovenox 40 mg SQ daily Admission and Anticipated Discharge Date Admission Date: February 02, 2022 Subjective Seen at bedside. Patient reports that he has no abdominal pain, no lightheadedness, no dizziness. Is peeing much less frequently than he was y esterday. Denies chest pain, chest pressure, shortness of breath, difficulty breathing. Denies any past history of diabetes. Reports he has been on the rituximab for about 6 weeks which has helped, and has not had other medical problems prior to that. He is not nauseous, no vomiting, tolerating meals well. Review of Systems Review of Systems: All systems reviewed & are unremarkable except as noted in Subjective Physical Exam Physical Exam: General: A&Ox3. NAD. Cooperative. HEENT: Atraumatic, normocephalic. Pulm: CTAB A&P. -wheezes, -rales, -rhonchi. Symmetrical chest rise. No increase in work of breathing. No respiratory distress. Cardiac: RRR, -mrg. Radial pulses intact and symmetrical. Abdominal: Nontender, nondistended, soft. BS present. : Extremities warm and dry, moves all extremities equally. Trace abrasion on right distal third finger, no erythema Results & Data Results & Data ([facility]) Vital Signs (Past 12 Hours) Vital Signs Temp Pulse Pulse Resp BP BP BP 02/03/22 07:14 36.4 C L 62 16 146/82 H 02/03/22 03:19 36.4 C L 61 18 148/80 H 02/02/22 23:56 70 02/02/22 22:52 36.5 C 70 18 129/79 02/02/22 21:55 79 02/02/22 21:32 36.8 C 73 18 134/81 02/02/22 21:25 36.7 C 73 18 146/87 H Pulse Ox 02/03/22 07:14 92 02/03/22 03:19 97 02/02/22 23:56 02/02/22 22:52 95 02/02/22 21:55 02/02/22 21:32 97 02/02/22 21:25 94 PG Care Time/CCT Total # of Minutes Spent Total Time Spent with Patient: Total time spent is greater than 50% in coordination of care (as documented) at patient's floor/unit and/or counseling patient: Coding Level of Care Code 83916 Subseq Hosp Care Lvl 3 Diagnoses Hyperosmolar hyperglycemic state (HHS) E11.00; E11.65 Hyponatremia E87.1 Granulomatosis with polyangiitis M31.30 COVID-19 U07.1 Infiltrate noted on imaging study R93.89 DVT prophylaxis Z29.9
[2022-02-03] MEDS ORDERED: INSULIN GLARGINE SOLOSTAR 100 UNITS/ML 3 ML PEN SC ONE (13:00)
--- NOTE | 2022-02-03 14:11 | Pharmacy Report ---
Pharmacy Glycemic Short Note 2 - Date of Service February 03, 2022 - Glycemic Short BSG Results (Last 24 hours): 02/02/22 02/02/22 02/02/22 14:20 17:20 19:09 Glucose 1004 H* POC Glucose > 600 H* 542 H* 02/02/22 02/02/22 02/02/22 20:12 21:10 22:48 Glucose POC Glucose 468 H* 341 H* 335 H* 02/03/22 02/03/22 02/03/22 00:00 01:01 03:03 Glucose POC Glucose 280 H 271 H 210 H 02/03/22 02/03/22 02/03/22 03:26 04:20 04:48 Glucose 173 H POC Glucose 172 H 195 H 02/03/22 02/03/22 02/03/22 05:10 05:33 06:35 Glucose POC Glucose 244 H 281 H 297 H 02/03/22 02/03/22 02/03/22 07:28 08:28 10:28 Glucose POC Glucose 281 H 281 H 225 H 02/03/22 12:00 Glucose POC Glucose 217 H OUTPATIENT ANTIDIABETIC REGIMEN: * None * HbA1c 5.7% October 2021, BUT on prednisone ~60 mg daily since November 2021 for granulomatosis w polyangiitis (formerly Julianne's) * Repeat HbA1c ordered ASSESSMENT: 02/03/22: * Insulin drip continues today at 1.3 m/hr. Labs normal, anion gap closed. * Blood sugars were above 250 mg/dl this AM. Goal range changed to 200-300 mg/dl this AM. * Spoke to Dr. Barrett, patient has received adequate amount of fluids and continue to get NS at 125 ml/hr. * Since Insulin drip running at low rate, patient can likely come off this once BSGs are better controlled. * Goal range further lowered to 150-250 mg/dl this afternoon. * Lantus 14 units (based on wt and full stress of 1) given this afternoon to facilitate d/c the insulin drip. * Carb ratio for Novolog changed to 1:11. * Expect insulin drip to turn off on it's own tonight. Background 02/02/22: * 61 yo M with hx of prediabetes on no diabetes medications as outpatient, started on prednisone ~2 months ago per above and now admitted with HHS * Not DKA as not acidotic (although anion gap slightly elevated). Corrected Na is 136 and *effective* osmolality for HHS is 328 (>320 indicative of HHS) * Continue insulin drip started in the ED * Normal saline 2L administered - more is likely necessary due to severe volume depletion associated with HHS - will reach out to provider PLAN FOR INPATIENT GLYCEMIC CONTROL: * Insulin drip, goal range 150-250 mg/dL for HHS * Basal insulin: Lantus 14 units x 1 given * Bolus insulin: NovoLog ACHS for CHO coverage, Correction factor: 25 mg/dl/unit once insulin drip discontinues Carb ratio: 1 unit per 11 gms of carb consumed
[2022-02-03 17:21] LABS: BUN Creatinine Ratio 27.9 (10-20); Calcium 7.6 mg/dl (8.5-10.1); Creatinine Clr Calc Pharmacy 93.4 ml/min; Est GFR (African American) 108.5 ml/min; Est GFR (Non-African American) 93.6 ml/min; Potassium 3.7 mmol/L (3.5-5.1)
[2022-02-03] MEDS: INSULIN REGULAR 250 UNITS in SODIUM CHLORIDE 0.9% 247.5 ML IV SCH (17:33)
[2022-02-04] MEDS: DEXTROSE 50% 50 ML SYRINGE IV PRN (04:09)
[2022-02-04 07:56] LABS: Hematocrit (blood only) 34.1 % (42-52); Hemoglobin 11.8 g/dL (14.0-18.0); Mean Corpuscular Hgb Conc 34.6 g/dL (32-36); Mean Platelet Volume 9.2 fL (7.4-10.4); Platelet Count 153 K/uL (130-400); RDW Coefficient of Variation 17.3 % (11.5-14.5); RDW Standard Deviation 51.3 fL (36.4-46.3); Red Blood Count 4.21 M/uL (4.7-6.1); White Blood Count 8.06 K/uL (4.8-10.8)
[2022-02-04 08:20] LABS: Calcium 7.8 mg/dl (8.5-10.1); Creatinine Clr Calc Pharmacy 92.4 ml/min; Est GFR (Non-African American) 93.2 ml/min; Potassium 2.9 mmol/L (3.5-5.1)
[2022-02-04 08:45] LABS: ALC (manual) 0.49 K/uL (1.2-3.4); ANC (manual) 7.14 K/uL (1.4-6.5); Lymphocytes # (manual) 0.49 K/uL (1.2-3.4); Lymphocytes % (manual) 6.1 %; Metamyelocytes # (manual) 0.15 K/uL (0-0); Metamyelocytes % (manual) 1.8 %; Monocytes # (manual) 0.07 K/uL (0.11-0.59); Monocytes % (manual) 0.9 %; Myelocytes # (manual) 0.21 K/uL (0-0); Myelocytes % (manual) 2.6 %; Neutrophils # (manual) 7.14 K/uL (1.4-6.5); Neutrophils % (manual) 88.6 %; RBC Morphology Unremarkable
[2022-02-04] MEDS: INSULIN ASPART PER UNIT SC SCH ×4 (08:49→22:08)
[2022-02-04] MEDS: predniSONE 20 MG TAB PO SCH (08:50)
[2022-02-04] MEDS: amLODIPine BESYLATE 5 MG TAB PO SCH (08:50)
[2022-02-04] MEDS: ENOXAPARIN INJ 40 MG/0.4 ML SYR SQ SCH (08:50)
[2022-02-04] MEDS ORDERED: POTASSIUM CHLORIDE CRTAB 20 MEQ TABCR PO STA (08:53)
[2022-02-04] MEDS ORDERED: INSULIN GLARGINE SOLOSTAR 100 UNITS/ML 3 ML PEN SC SCH (09:00)
--- NOTE | 2022-02-04 10:41 | Pharmacy Report ---
Pharmacy Glycemic Short Note 2 - Date of Service February 04, 2022 - Glycemic Short BSG Results (Last 24 hours): 02/03/22 02/03/22 02/03/22 12:00 14:03 14:04 Glucose POC Glucose 217 H 316 H* 330 H* 02/03/22 02/03/22 02/03/22 15:04 15:06 15:52 Glucose POC Glucose 359 H* 302 H* 289 H 02/03/22 02/03/22 02/03/22 16:45 16:58 17:50 Glucose 251 H POC Glucose 251 H 341 H* 02/03/22 02/03/22 02/03/22 17:51 18:57 18:58 Glucose POC Glucose 347 H* 328 H* 339 H* 02/03/22 02/03/22 02/03/22 19:57 21:01 22:12 Glucose POC Glucose 282 H 298 H 286 H 02/03/22 02/04/22 02/04/22 23:17 00:30 02:02 Glucose POC Glucose 241 H 156 H 179 H 02/04/22 02/04/22 02/04/22 03:01 04:03 04:24 Glucose POC Glucose 135 H 98 209 H 02/04/22 02/04/22 02/04/22 05:18 06:30 07:05 Glucose 122 H POC Glucose 191 H 130 H 02/04/22 07:36 Glucose POC Glucose 143 H OUTPATIENT ANTIDIABETIC REGIMEN: * None * HbA1c 5.7% October 2021, BUT on prednisone ~60 mg daily since November 2021 for granulomatosis w polyangiitis (formerly Julianne's) * Repeat HbA1c ordered ASSESSMENT: 02/04/22: * Patient received a total of around 60 units of insulin yesterday: 14 units basal + 12 units bolus and the insulin drip running at an average of 1.5 ml/hr through out the day. * Insulin drip rate this AM was 0.6 ml/hr with BSG at 130 mg/dl. Anion gap and bicarbonate levels normal. However potassium = 2.9. Insulin drip discontinued. * Basal Lantus ordered 20 units this AM. Novolog parameters based on wt and stress of 3 since patient is on Prednisone 20 mg daily. * Pre-lunch BSG was 163 mg/dl today. Lab blood work result showed BSG of 304 around 1 pm today. This is a post-prandial BSG result and not covered by insu ronald. Per Nurse, patient had just had his lunch. Expect this BSG to trend down by dinner. 02/03/22: * Insulin drip continues today at 1.3 m/hr. Labs normal, anion gap closed. * Blood sugars were above 250 mg/dl this AM. Goal range changed to 200-300 mg/dl this AM. * Spoke to Dr. Barrett, patient has received adequate amount of fluids and continue to get NS at 125 ml/hr. * Since Insulin drip running at low rate, patient can likely come off this once BSGs are better controlled. * Goal range further lowered to 150-250 mg/dl this afternoon. * Lantus 14 units (based on wt and full stress of 1) given this afternoon to facilitate d/c the insulin drip. * Carb ratio for Novolog changed to 1:11. * Expect insulin drip to turn off on it's own tonight. Background 02/02/22: * 61 yo M with hx of prediabetes on no diabetes medications as outpatient, started on prednisone ~2 months ago per above and now admitted with HHS * Not DKA as not acidotic (although anion gap slightly elevated). Corrected Na is 136 and *effective* osmolality for HHS is 328 (>320 indicative of HHS) * Continue insulin drip started in the ED * Normal saline 2L administered - more is likely necessary due to severe volume depletion associated with HHS - will reach out to provider PLAN FOR INPATIENT GLYCEMIC CONTROL: * Insulin drip: discontinued today AM * Basal insulin: Lantus 20 units SQ QAM, reassess tomorrow * Bolus insulin: NovoLog ACHS for CHO coverage or Q6h if NPO Correction factor: 20 mg/dl/unit Carb ratio: 1 unit per 7 gms of carb consumed
[2022-02-04] MEDS: POTASSIUM CHLORIDE CRTAB 20 MEQ TABCR PO SCH ×3 (12:18→22:09)
[2022-02-04 13:29] LABS: BUN Creatinine Ratio 20.6 (10-20); Calcium 7.8 mg/dl (8.5-10.1); Creatinine Clr Calc Pharmacy 78.8 ml/min; Est GFR (African American) 91.5 ml/min; Potassium 3.8 mmol/L (3.5-5.1)
--- NOTE | 2022-02-04 15:01 | Hospitalist Progress Note ---
Date of Service February 04, 2022 Assessment & Plan (1) Hyperosmolar hyperglycemic state (HHS): Plan: - Last A1c was 5.7% in 10/2021. He has been on prednisone since early November, up to 60 mg for weeks. Only recently started tapering down. Rituximab also has 9% risk of hypeglycemia per report. -A1c 15.5 on admission, BSG on admission greater than 1000 Started on insulin GTT on admission - Glycemic pharmacy consulted on admission - software educator consulted -02/03: Sodium normalized 142, potassium 3.9, glucose down trended to 173 at 0326, POC 281 at 0829, phosphorus 2.3, anion gap 7, bicarb 28 Serum glucose downtrending, anion gap less than 12, bicarb greater than 15, last VBG pH greater than 7.3. - BSG goal adjusted to 150-250 02/04: Patient converted from insulin drip overnight. Was hypokalemic, coby to 3.8 today with repletion. Patient switched to Lantus 20 and weight-based NovoLog stress dosing as is on daily prednisoneCorrection factor 20, carb ratio, goal [id number]. Patient did rise to a BSG of 300 with lunch, received scale coverage with recheck pending. We will continue to adjust glycemic needs, requires additional management for estimation of glycemic control on discharge. Trend BMP (2) Hyponatremia: Plan: Pseudohyponatremia. 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 Follows with Roel Mendez at [facility]. - Presently on prednisone 20 mg PO daily -> Continue - Per patient, Dr. Mendez told him to stop Tavneos 02/02. Not continued inpatient. 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 Kidney biopsy delayed due to Covid-19 test being positive. Continue prednisone at this time, will reach out to [place] office tomorrow once open during normal business hours (4) COVID-19: Plan: Covid-19 was positive per patient on 01/19 which was done as a pre-kidney biopsy test. Denies any symptoms. CT a/p on admission also shows some mild opacities in the lower lung. - Past isolation date at this point; no intervention at this time (5) Infiltrate noted on imaging study: Plan: Noted on CT a/p. Possibly due to Covid. -Calcitonin negative, no fever, defer antibiotic treatment at this time (6) DVT prophylaxis: Plan: Lovenox 40 mg SQ daily Admission and Anticipated Discharge Date Admission Date: February 02, 2022 Subjective Seen at bedside, feels much better and overall close to normal today. Denies fever, chills, chest pain, chest pressure, palpitations, nausea, vomiting, diarrhea, constipation. Was switched off insulin drip last night, tolerating breakfast and lunch later on reassessment well today Review of Systems Review of Systems: All systems reviewed & are unremarkable except as noted in Subjective Physical Exam Physical Exam: General: A&Ox3. NAD. Cooperative. HEENT: Atraumatic, normocephalic. Pulm: CTAB A&P. -wheezes, -rales, -rhonchi. Symmetrical chest rise. No increase in work of breathing. No respiratory distress. Cardiac: RRR, -mrg. Radial pulses intact and symmetrical. Abdominal: Nontender, nondistended, soft. BS present. Extremities warm and dry, moves all extremities equally. Sensation intact in hands and feet. Results & Data Results & Data ([facility]) Vital Signs (Past 12 Hours) Vital Signs Temp Pulse Pulse Resp BP Pulse Ox 02/04/22 14:47 98 02/04/22 11:31 36.5 C 67 18 144/87 H 95 02/04/22 07:47 36.6 C 60 66 18 131/76 96 02/04/22 04:11 36.5 C 63 18 129/78 95 PG Care Time/CCT Total # of Minutes Spent Total Time Spent with Patient: Total time spent is greater than 50% in coordination of care (as documented) at patient's floor/unit and/or counseling patient: Coding Level of Care Code 55222 Subseq Hosp Care Lvl 2 Diagnoses Hyperosmolar hyperglycemic state (HHS) E11.00; E11.65 Hyponatremia E87.1 Granulomatosis with polyangiitis M31.30 COVID-19 U07.1 Infiltrate noted on imaging study R93.89 DVT prophylaxis Z29.9
[2022-02-05] MEDS: INSULIN ASPART PER UNIT SC SCH ×3 (08:07→17:17)
[2022-02-05] MEDS: amLODIPine BESYLATE 5 MG TAB PO SCH (08:08)
[2022-02-05] MEDS: ENOXAPARIN INJ 40 MG/0.4 ML SYR SQ SCH (08:08)
[2022-02-05] MEDS: predniSONE 20 MG TAB PO SCH (08:09)
[2022-02-05] MEDS ORDERED: INSULIN GLARGINE SOLOSTAR 100 UNITS/ML 3 ML PEN SC SCH (09:00)
[2022-02-05 09:30] LABS: BUN Creatinine Ratio 19.6 (10-20); Calcium 7.6 mg/dl (8.5-10.1); Creatinine Clr Calc Pharmacy 89.8 ml/min; Est GFR (African American) 103.7 ml/min; Est GFR (Non-African American) 89.5 ml/min; Potassium 3.5 mmol/L (3.5-5.1)
--- NOTE | 2022-02-05 12:39 | Discharge Summary ---
Date of Service February 05, 2022 Admission HPI Per Admitting Provider 61yo M w/ hx of vasculitis who presents with hyperglycemia, HHS vs. mild DKA. The patient spent much of 2020 with various joint, eye, and fingertip pain. 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 Roel Mendez in [place]. He was started on prednisone 60 mg PO daily and took that for nearly 2 months. He was also approved for Tavneos and rituximab. He finished his Tavneos today (per the patient Dr. Mendez told him to stop it) and received his most recent rituximab infusion on 01/29 with plans for another next week. He reports that over the last few weeks, he has become progressively weaker. He reports no focal weakness, but just that he has to "concentrate" to stay upright in his chair. Lifting himself out of bed takes a lot of energy. He also notes incredible thirst and has been having to drink non-stop to keep his mouth from getting dry. He notes urination of clear urine every hour. He also notes waxing and waning blurry vision. Principal Diagnosis HHS Discharge Exam General: A&Ox3. NAD. Cooperative. HEENT: Atraumatic, normocephalic. Vision/hearing intact. Mucous membranes moist. Pulm: CTAB A&P. -wheezes, -rales, -rhonchi. Symmetrical chest rise. No increase in work of breathing. No respiratory distress. Cardiac: RRR, -mrg. Radial pulses intact and symmetrical. Abdominal: Nontender, nondistended, soft. BS present. Extremities warm and dry, moves all extremities equally. Sensation intact in hands and feet Discharge Data Allergies Allergy/AdvReac Type Severity Reaction Status Date / Time No Known Drug Allergies Allergy NKDA Verified 02/02/22 18:10 Consultations 02/02/22 17:29 ED Decision to Admit Stat Ordered Studies 02/02/22 15:57 CT abd pelvis wo con Stat CT head/brain wo con Stat Hospital Course (1) Hyperosmolar hyperglycemic state (HHS): To do as outpatient: 1. Start Metformin extended release. Start with 1 500 mg XL tablet in the morning, increase by 1 tablet every 3 days to target goal of 2 tablets morning and 2 tabs evening for a total daily dose of 2000 mg. 2. Sliding scale NPH based on prednisone taper. While on prednisone 20 mg, please take insulin NPH 17 units daily in the morning While on prednisone 15 mg please take NPH 14 units daily While on prednisone 10 mg please take NPH 11 units daily While on prednisone 5 mg please take NPH 8 units daily. Need additional recommendations based on progression and taper. 3. Follow-up glycemic management. Patient was noted to have an A1c of 5.7-6.0% in October with rapid increase while on prednisone and Rituxan. Rituxan does have a 9% risk of dysregulated hyperglycemia. Given his rapid rise to an A1c of 15%, unclear what his underlying glycemic requirements are and he is also at increased risk for hypoglycemia from overtreatment of insulin now that his prednisone is being tapered and other medications have been held. As such is being discharged on a NPH taper as noted above, but will require close management and adjustments based on progression. He will have a follow-up PCP appointment within 1 week, and has already been scheduled for a follow-up with his manager marketing communications on 02/07. 4. BMP for stability within 1 week 5. Patient will check BSG in the morning, and at least once throughout the day. He is to call physician with any measurements over 250, and present to the ER for any measurement over 300. [facility] - Last A1c was 5.7% in 10/2021. He has been on prednisone since early November, up to 60 mg for weeks. Only recently started tapering down. Rituximab also has 9% risk of hypeglycemia per report. -A1c 15.5 on admission, BSG on admission greater than 1000 Started on insulin GTT on admission - Glycemic pharmacy consulted on admission - cosmetology educator consulted -02/03: Sodium normalized 142, potassium 3.9, glucose down trended to 173 at 0326, POC 281 at 0829, phosphorus 2.3, anion gap 7, bicarb 28 Serum glucose downtrending, anion gap less than 12, bicarb greater than 15, last VBG pH greater than 7.3. - BSG goal adjusted to 150-250 Was treated with an insulin drip, potassium repletion, and Rituxan was held Prednisone was continued for RA, and patient was transitioned to basal bolus insulin. Based on his stable requirements recommendations for NPH were made on discharge as above. (2) Hyponatremia: Pseudohyponatremia. Corrected Na is 135 on admission Normalized - Monitor (3) Granulomatosis with polyangiitis: Diagnosed in early November from symptoms and positive MS-3 Ab. Follows with Reol Mendez at [facility]. - Presently on prednisone 20 mg PO daily -> Continue - Per patient, Dr. Mendez told him to stop Tavneos 02/02. Not continued inpatient. 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 Kidney biopsy delayed due to Covid-19 test being positive. Continue prednisone at this time, patient has a scheduled appointment with his manager marketing communications for 02/07. Case was discussed in person with his Dr. Mendez by phone during admission., Appreciate his assistance in recommendations and close follow-up for patient. (4) COVID-19: Covid-19 was positive per patient on 01/19 which was done as a pre-kidney biopsy test. Denies any symptoms. CT a/p on admission also shows some mild opacities in the lower lung. - Past isolation date at this point; no intervention at this time (5) Infiltrate noted on imaging study: Noted on CT a/p. Possibly due to Covid. -Calcitonin negative, no fever, defer antibiotic treatment at this time (6) DVT prophylaxis: Lovenox 40 mg SQ daily Total Time Total Time Spent Total Time Spent (In Minutes): Time spend day of discharge minutes including 75 direct patient care, documentation, review of labs and images, and coordination of care. Discharge Plan Discharge Items Patient Disposition: Home - Self-Care Reason For Visit: HYPERGLYCEMIA, HHS Discharge Diagnosis: Hyperglycemia, HHS Activity: Resume your previous activity Non-emergency contact: Primary Care Provider Call non-emergency contact if: you have any medication questions, your symptoms worsen and your pain is not controlled Follow-up/Referrals: Caitie Lopez DO [Primary Care Provider] - Diet: Carb Consistent or DM2 Addtl Attending Provider Instructions: You were seen in the hospital for HHS, a serious and potentially life- threatening complication of uncontrolled diabetes. Your diabetes is likely acutely worsened by your prednisone taper, and possibly by your rituximab. Your rituximab has been stopped, and your Levaquin has been stopped at this time. Your prednisone is to be tapered, your case was discussed with your manager marketing communications who is setting up a follow-up appointment for you this week to help guide this. Your diabetes resulted in dangerously high blood sugars, which will require intense treatment. If the medications above were a large portion of this, you may be able to reduce medications in the future but will require close monitoring and treatment at this time. Your A1c (a 3-month average of your blood sugar) was actually well controlled in October, suggesting a large part of this may have been due to medication side effect. You have been prescribed a diabetes medication, Metformin. Please take Metformin extended release 500 milligrams tablets. Start with 1 tablet in the morning with breakfast. If well-tolerated for 3 days, add a evening tablet with supper. If you continue to do well for the next 3 days, you may take 2 tablets in the morning with breakfast and 1 tablet in the evening with supper. Then if doing well after another 3 days, take 2 tablets in the morning with breakfast and 2 tablets in the evening with supper for a total daily dose of 2000 mg. For some people Metformin can cause some bloating or diarrhea, if you experience severe diarrhea do not continue to increase your dose and talk to your primary care physician for additional adjustments. You have also been prescribed an insulin medication to help keep your blood sugars in a fairly safe range while taking the prednisone. As your prednisone dose is decreased, you will adjust your insulin as below. Once off the prednisone you may or may not require additional antiglycemic management, this will be discussed and directed by your primary care physician. You have been prescribed insulin NPH. Please take the insulin NPH at the same time you take the prednisone in the morning. While on prednisone 20 mg, please take insulin NPH 17 units daily in the morning While on prednisone 15 mg please take NPH 14 units daily While on prednisone 10 mg please take NPH 11 units daily While on prednisone 5 mg please take NPH 8 units daily. If you stop taking prednisone, please contact your primary care provider for additional recommendations on what insulin to take. Please follow-up with your primary care physician for additional recommendations regarding insulin dosing. Depending on how your blood sugars do you may require a dose change of your insulin, or conversion to a long and short acting combination insulin regimen. Please check your blood sugar once in the morning, and once before supper. If you have 3 blood sugar measurements greater than 200 or any blood sugar measurement greater than 300 please call your primary care physician for additional recommendations, or return to the emergency room for additional evaluation and treatment. Follow-up appointment with your manager marketing communications is being scheduled for you. You will receive a call to confirm this appointment, appointment will hopefully be scheduled for you within the next 3 to 4 days. You should have a follow-up appointment with your primary care physician, Dr. Lopez. You should receive a call to confirm your appointment within 48 hours. You should have an appointment within the next week. If you do not receive a call, please contact her office at the number above. If you develop any new or worsening symptoms including fever, chills, sweats, chest pain, chest pressure, difficulty breathing, uncontrolled nausea/vomiting, rash, wheezing, passing out or nearly passing out, bleeding, black/bloody bowel movements, or other new or concerning symptoms please call your primary care physician, or call 911 for re-evaluation in the emergency department if you are very concerned. Pending Studies at Discharge: No Stand-Alone Forms: My [facility] [employer], Smoking Cessation Medications and DC Order Prescriptions: New (DME) blood-glucose meter [ReliOn All-In-One Meter] Kit See Rx Instructions .Route Qty: 1 RF: 0 insulin NPH isoph U-100 human 100 unit/mL (3 mL) insulin pen See Rx Instructions .ROUTE .COMPLEX Qty: 3 RF: 1 metformin 500 mg tablet extended release 24 hr 500 mg PO UD Qty: 120 RF: 0 Continued amlodipine 5 mg tablet 10 mg PO DAILY RF: 0 prednisone 20 mg tablet 20 mg PO DAILY RF: 0 Discontinued Tavneos 10 mg capsule 30 mg PO .STOP RF: 0 rituximab [Rituxan] See Rx Instructions IV .COMPLEX RF: 0 Discharge Orders: Discharge Order (Routine); Ordered 02/05/22 Ordered By: Vinny Barrett Admission Data Admit Date/Time: 02/02/22 18:07 Attending Provider: Vinny Barrett Admit Provider: Alberto Turner Primary Care Provider: Caitie Lopez Other Providers: Alberto Turner Other Interventions: Discharge Summary Assessment (RN) Last Done: 02/05/22 15:56 Coding Level of Care Code D/C DAY MANAGEMENT >30 MINS Diagnoses Hyperosmolar hyperglycemic state (HHS) E11.00; E11.65 Hyponatremia E87.1 Granulomatosis with polyangiitis M31.30 COVID-19 U07.1 Infiltrate noted on imaging study R93.89 DVT prophylaxis Z29.9
== END 2022-02-05 18:22 | disposition home or self-care (01) | DRG 637 ==
LOC: ED 13:34 → 2W 18:07 → SUATTDRO 18:07 → 2W 21:32
DX: Z87.891 Personal history of nicotine dependence; Z79.52 Long term (current) use of systemic steroids; E11.00 Type 2 diabetes mellitus with hyperosmolarity without nonketotic hyperglycemic-hyperosmolar coma (NKHHC); M19.91 Primary osteoarthritis, unspecified site; K21.9 Gastro-esophageal reflux disease without esophagitis; M31.30 Wegener's granulomatosis without renal involvement; J31.0 Chronic rhinitis; E87.6 Hypokalemia; E78.5 Hyperlipidemia, unspecified; U07.1 COVID-19